=== PATIENT | female | born 1950 | race Caucasian/White ===

== ENCOUNTER 2017-09-20 19:10 | Emergency (ER) | payer OTHER, MEDICAID ==
[~2017-09-20] VITALS: Ht 157.5 cm; Wt 75.7 kg
[2017-09-20 19:45] VITALS: Ht 157.5 cm; Wt 75.7 kg
[2017-09-20 20:49] VITALS: BP 184/86
== END 2017-09-20 20:50 | disposition home or self-care (01) ==
LOC: ED 19:10
DX: B02.9 Zoster without complications (principal); I10 Essential (primary) hypertension; E11.9 Type 2 diabetes mellitus without complications; Z88.0 Allergy status to penicillin; Z90.710 Acquired absence of both cervix and uterus

== ENCOUNTER 2018-07-21 18:43 | Emergency (ER) | payer OTHER ==
[~2018-07-21] VITALS: Ht 154.9 cm; Wt 79.4 kg
[2018-07-21 18:46] VITALS: BP 243/82; Ht 154.9 cm; Wt 79.4 kg
[2018-07-21 19:57] LABS: BASOPHIL % 0.4 % (0-2); PLATELET COUNT 212 x10^3mcL (130-400)
[2018-07-21 19:58] LABS: RED CELL DISTRIBUTION WIDTH 14.6 % (11.5-14.5)
[2018-07-21 20:29] LABS: CALCIUM 9.6 mg/dL (8.5-10.1); CARBON DIOXIDE 31.1 mmol/L (21-32); CHLORIDE SERUM 101 mmol/L (98-107); CREATININE SERUM 0.7 mg/dL (0.6-1.0); GFR1 > 60 mL/min; GLUCOSE SERUM 126 mg/dL (74-106); POTASSIUM SERUM 3.7 mmol/L (3.5-5.1); SODIUM SERUM 138 mmol/L (136-145)
[2018-07-21 20:33] LABS: ALBUMIN 4.1 g/dL (3.4-5.0); ALKALINE PHOSPHATASE 49 U/L (46-116); ALT/SGPT 22 U/L (14-59); AST/SGOT 12 U/L (15-37); BILIRUBIN TOTAL 0.36 mg/dL (0.20-1.00); CHOLESTEROL 200 mg/dL (<200); PHOSPHOROUS 3.6 mg/dL (2.5-4.9); TOTAL PROTEIN, SERUM 7.9 g/dL (6.4-8.2); URIC ACID 5.8 mg/dL (2.6-6.0)
[2018-07-21 20:35] LABS: HDL CHOLESTEROL 65 mg/dL (40-60)
== END 2018-07-21 21:09 | disposition home or self-care (01) ==
LOC: ED 18:43
PROVIDERS: Emergency Medicine
DX: I87.8 Other specified disorders of veins (principal); I16.0 Hypertensive urgency; E11.9 Type 2 diabetes mellitus without complications; Z88.1 Allergy status to other antibiotic agents
CPT/HCPCS: 36415; J7030; Q0092